=== PATIENT | female | born 1970 | race Caucasian/White ===

== ENCOUNTER 2018-10-16 06:48 | Day surgery (SDC) | payer BC, SELFPAY ==
--- NOTE | 2018-10-14 14:42 | NUR.NOTE ---
PT REPORTS HAVING A COLD WITH A SLIGHT COUGH. ANES NOTIFIED, JUAN PABLO TOBAR TO CALL PT, PT'S CONTACT INFORMATION PROVIDED.Nursing Note:
--- NOTE | 2018-10-15 12:56 | W.PIPPEYE ---
History of Present Illness Chief Complaint: Progressive decreased vision, right eye Narrative: The patient is a 48-year-old female with history of progressive decreased vision in her right eye. She notes blurry foggy and smoking vision in the right eye which has become progressively worse. On examination she was noted to have posterior subcapsular cataract in the right eye with corrected visual acuity of 20/50. The option of cataract surgery was offered to the patient and she felt she was symptomatic enough that she wished to proceed. NOTE: The Chief Complaint, HPI, Past Medical History, Past Surgical History, Family History, Social History, Medications, and complete Ophthalmic Exam with detailed Assessment and Plan have already been documented in the patient's outpatient ophthalmic record and are not covered again in detail here. PFSH Medical History Hx of fracture of ankle (Acute) Hx of ovarian cyst (Acute) Hx of seasonal allergies (Acute) Cataract (Chronic) GERD (gastroesophageal reflux disease) (Chronic) Hypertension (Chronic) Obesity (Chronic) Surgical History History of oral surgery (Acute) Family History Father Heart disease Other Cancer Diabetes Hypertension Multiple sclerosis Social History Smoking/Tobacco Use Status: Never Alcohol Intake: current Alcohol Intake frequency: a few times a week Alcohol type: beer Substance use type: does not use Do you feel safe at home: Yes Do you feel safe in your relationship?: Yes Meds Home Medications Medication Instructions Recorded Confirmed Type hydrochlorothiazide 12.5 mg PO DAILY 10/13/18 10/14/18 History loratadine 10 mg PO DAILY PRN 10/13/18 10/14/18 History naproxen sodium [Aleve] 220 mg PO DAILY 10/13/18 10/14/18 History nystatin 1 applic TOPICAL TID 10/13/18 10/14/18 History ranitidine HCl 150 mg PO BID PRN 10/13/18 10/14/18 History Allergies Allergy/AdvReac Type Severity Reaction Status Date / Time cats Allergy Unknown Uncoded 10/13/18 06:58 hayfever Allergy Unknown Uncoded 10/13/18 06:58 steroids AdvReac Unknown Uncoded 10/13/18 06:58 Exam OCULAR EXAM:: Most recent ocular examination reveals corrected visual acuity of 20/50 OD, 20/30 OS. Intraocular pressure is 20 OD, 16 OS. Extraocular motility is normal. Pupils equal, round, and reactive without afferent pupillary defect slit-lamp examination is significant for 1+ central posterior subcapsular cataract OU. Dilated funduscopic examination shows disc cupping of 0.3 OU with good color. The optic nerves have good perfusion and normal color. The retinal vasculature is normal without significant tortuosity or abnormality. The maculas are normal in appearance with normal contour and foveal reflex appropriate for age. The peripheral retina and vitreous are normal. BRIGHTNESS ACUITY TESTING (BAT):: Brightness acuity testing of the right eye office is 20/50. Low is 20/60. Medium is 20/70. On the high setting is 20/200. Assessment and Plan (1) Posterior subcapsular age-related cataract, right eye: Current visit: No Status: Acute Assessment: Visually significant cataract, right eye. Plan: Cataract extraction with intraocular lens implantation, right eye Note: NOTE:: The details of the planned surgery, including the risks, indications,limitations,expectations,outcome and possible complications were explained to the patient. The patient understands the complications including, but not limited to: infection, hemorrhage, posterior dislocation of the lens or nuclear fragments which may require the intervention of a vitreoretinal surgeon, possible loss of the eye, or from anesthetic complications. The patient has been made aware of the option of not having surgery, that vision following surgery may not be equal to that prior to surgery, and that the planned surgery may not achieve the intended results. Following this discussion, which the patient appeared to understand, the patient wishes to proceed with cataract surgery with lens implantation of the affected eye to improve and maximize vision.
[2018-10-16 06:50] VITALS: BP 155/91; PULSE 71; RESP 16; TEMP 35.9; O2SAT 97
[2018-10-16] MEDS: Tetracaine 0.5% 4 ML BTL OD ×4 (07:16→08:07)
--- NOTE | 2018-10-16 07:16 | W.PM.DSUDISC ---
Discharge Plan Disposition Patient Disposition: HOME Condition: Stable Discharge Details Attending Provider: Juan A Bell Primary Care Provider: Taryn Johnston Home Meds and New Rx's Prescriptions: No Action nystatin 100,000 unit/gram Cream 1 applic TOPICAL TID RF: 0 ranitidine HCl 150 mg Capsule 150 mg PO BID PRNRF: 0 loratadine 10 mg Tablet 10 mg PO DAILY PRNRF: 0 hydrochlorothiazide 12.5 mg Tablet 12.5 mg PO DAILY RF: 0 naproxen sodium [Aleve] 220 mg Capsule 220 mg PO DAILY RF: 0 Discharge Instructions Stand Alone Forms: Post-op Topical Cataract, Nahomy Rader (DSU) Discharge Orders Discharge Orders: Discharge Order (Routine); Ordered 10/16/18 Ordered By: Juan A Bell DS: Diagnosis Discharge Diagnosis (1) Posterior subcapsular age-related cataract, right eye: Status: Resolved (2) Status post cataract extraction and insertion of intraocular lens of right eye: Status: Chronic
[2018-10-16] MEDS: Tropicam./Phenyleph. (1/2.5%) 5 ML BTL OD ×3 (07:17→07:25)
--- NOTE | 2018-10-16 07:17 | W.PM.OP ---
Date of service: 10/16/18 Time of Service: 08:46 Operative Note PRE-OP DIAGNOSIS: Cataract, right eye PROCEDURE: Cataract extraction using phacoemulsification with intraocular lens implant, right eye SURGEON: Juan A Bell ANESTHESIA: MAC and local (sub-tenon's anesthetic infiltration) ESTIMATED BLOOD LOSS: 0 PATHOLOGY: none sent COMPLICATIONS: None Patient was transported to: same day Patient's condition: stable Implants: [employer] / [employer] Tecnis ZCB00 intraocular lens Indications: Progressive decreased vision due to cataract, right eye Procedure Description: CATARACT SURGERY OPERATIVE REPORT PREOPERATIVE DIAGNOSIS: Posterior subcapsular cataract, right eye POSTOPERATIVE DIAGNOSIS: Same OPERATION: Cataract extraction using phacoemulsification with posterior chamber intraocular lens implant, right eye. IOL: IOL Licensing Coordinator/Model: [employer] / TANG Tecnis ZCB00 IOL Power: + 23.50 diopters IOL Serial Number: [id number] Optic Diameter: 6.0mm Haptic/Overall Diameter: 13.0mm PHACO INFO: [employer] Vision System with OZil and [employer] Cumulative Dispersed Energy (CDE): 4.12 seconds SURGEON: Juan A Bell MD, WILLEM ANESTHESIA: Monitored Anesthesia Care (MAC), with local sub-tenon's anesthetic infiltration COMPLICATIONS: None SPECIMENS: None INDICATIONS FOR PROCEDURE: The patient is a 48-year old lady with history of diminished visual acuity in her right eye. She is noted to have a significant central posterior subcapsular cataract. The option of cataract surgery was offered to the patient and she felt she was symptomatic enough that she wished to proceed. PROCEDURE: The correct surgical eye was identified and marked as the right eye and the pupil was dilated in the preoperative area using mydriatics and cycloplegics. The dilated pupil size was 7.0 mm. Oral sedation was administered in the form of an Imprimis MKO Melt (midazolam 3mg/ketamine 25mg/ondansetron 2mg). The patient was brought to the operating room where cardiopulmonary monitoring was instituted and surgical time-out was performed, confirming the correct operative eye and IOL power. Topical anesthesia was administered and ophthalmic povidone-iodine 5% was instilled into the conjunctival fornices. Lidocaine gel was applied to the cornea and the karen-ocular area was prepped with Betadine 10% solution and draped in the usual sterile fashion for intraocular surgery, including an aperture drape. A Tegaderm transparent film dressing was cut in half and used to cover the lashes and lid margins. Care was taken to sequester the lashes and lid margins under the Tegaderm dressing. A lid speculum was placed between the lids of the operative eye and the Nic-Kateryna operating microscope was maneuvered into position. Jaimie scissors were then used to make a conjunctival buttonhole approximately 6mm posterior to the limbus in the inferonasal quadrant. Blunt dissection was carried out to expose bare sclera, and a blunt-tipped sub-tenon?s anesthesia cannula was introduced and passed posteriorly along the globe where non-preserved plain lidocaine was injected into posterior sub-Tenon?s space. A sideport knife was used to make a paracentesis port inferiortemporally, and the anterior chamber was filled with Healon GV. A 2.4mm keratome knife was used to create a half-thickness groove at the limbus and then to construct a three-plane near-clear corneal tunnel extending 2.0mm into clear cornea in the superiortemporal position. . A flap was raised on the anterior capsule and capsulorhexis forceps were used to complete a continuous curvilinear capsulorhexis of 5.0 mm. Balanced salt solution was then used to perform cortical cleaving hydrodissection and nuclear hydrodelineation until the lens could be freely rotated within the capsular bag. The lens nucleus was then disassembled and removed within the capsular bag and iris plane using phacoemulsification. During phacoemulsification, the iris was noted to be quite floppy, and the pupil constricted to 4 mm. Residual cortical material was removed using the I/A handpiece. The posterior capsule was carefully polished to remove as much residual lens epithelial cells as safely possible. The capsular bag was then inflated and the anterior chamber deepened with viscoelastic. The lens implant described above was inserted into the capsular bag using the TANG False Pass Injector. A Kuglen hook was used to dial the IOL into position. Residual viscoelastic was then removed first from posterior to the IOL, then from the anterior chamber using the I/A handpiece. The lens implant was noted to center nicely within the capsular bag. The incisions were stromally hydrated, and the anterior chamber was reformed using BSS. Then 0.4cc of moxifloxacin 1.5mg/ml were injected into the capsular bag and anterior chamber. The incisions were checked with a Weck spear and found to be secure. Several drops of ophthalmic povidone-iodine 5% were then applied to the eye followed by two drops of Imprimis combination gatifloxacin/dexamethasone solution. The drapes were removed and a clear plastic protective eye shield was placed over the eye. The patient was then returned to [facility] in stable condition.
[2018-10-16 07:46] VITALS: BP 155/91; PULSE 71; RESP 16; TEMP 35.9; O2SAT 97
[2018-10-16] MEDS: Povidone-Iodine Ophth 30 ML BTL (08:08)
[2018-10-16] MEDS: Lidocaine 2% Jelly 6 ML SYR (08:08)
[2018-10-16] MEDS: Balanced Salt Soln.-PLUS 500 ML BAG (08:13)
[2018-10-16] MEDS: Lidocaine 1% Pres-Free 5 ML VIAL (08:13)
[2018-10-16 09:10] VITALS: BP 140/89; PULSE 72; RESP 18; TEMP 37.1; O2SAT 95
== END 2018-10-16 09:15 | disposition home or self-care (01) ==
PROVIDERS: PCP Family Medicine; Visit Provider Ophthalmology
PROC: (CPT 66984; principal; 2018-10-16 08:20)
DX: H25.041 Posterior subcapsular polar age-related cataract, right eye (principal); K21.9 Gastro-esophageal reflux disease without esophagitis; I10 Essential (primary) hypertension
CPT/HCPCS: 66984; V2632